=== PATIENT | male | born 1990 | race Caucasian/White ===

== ENCOUNTER 2018-12-28 15:38 | Emergency (ER) | payer OTHER ==
[2018-12-28 16:06] VITALS: BP 131/67; PULSE 74; TEMP 98; BMI 22.3
--- NOTE | 2018-12-28 16:07 | PDOC ---
Rapid Medical Evaluation Chief Complaint: Injury Medical Evaluation: Allergies Allergy/AdvReac Type Severity Reaction Status Date / Time shellfish derived Allergy Severe Hives Verified 12/28/18 16:04 12/28/18 16:05 I have performed a brief in-person evaluation of this patient. The patient presents with a chief complaint of: PAIN AND SWELLING TO RIGHT HAND Pertinent physical exam findings: swollen right hand I have ordered the following: XrAY HAND The patient will proceed to the ED for further evaluation. Discharge Disposition - Diagnosis Hand deformity - Referrals - Patient Instructions - Post Discharge Activity
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
== END 2018-12-28 17:14 | disposition home or self-care (01) ==
LOC: JERFT 15:38
PROC: 2W3EX1Z Immobilization of Right Hand using Splint (ICD-10-PCS; principal; 2018-12-28)
DX: S62.314A Displaced fracture of base of fourth metacarpal bone, right hand, initial encounter for closed fracture (principal); W22.8XXA Striking against or struck by other objects, initial encounter; Y93.89 Activity, other specified; Y92.89 Other specified places as the place of occurrence of the external cause; Y99.8 Other external cause status
CPT/HCPCS: 73130-TC-RT-FY; 99281-25

== ENCOUNTER 2021-10-15 02:01 | Emergency (ER) | payer OTHER ==
[2021-10-15 02:14] VITALS: BP 118/70; PULSE 78; TEMP 98.1; BMI 22.3
[2021-10-15] MEDS ORDERED: diazePAM 5 MG TABLET PO ONE (07:22)
[2021-10-15] MEDS ORDERED: KETOROLAC TROMETHAMINE 30 MG/1 ML VIAL IM ONE (07:22)
[2021-10-15] MEDS ORDERED: diazePAM 5 MG TABLET ONE (07:34)
[2021-10-15] MEDS ORDERED: KETOROLAC TROMETHAMINE 30 MG/1 ML VIAL ONE (07:35)
== END 2021-10-15 07:49 | disposition home or self-care (01) ==
LOC: JER 02:01
PROC: 3E023GC Introduction of Other Therapeutic Substance into Muscle, Percutaneous Approach (ICD-10-PCS; principal; 2021-10-15)
DX: M54.42 Lumbago with sciatica, left side (principal); M62.830 Muscle spasm of back
CPT/HCPCS: 99284-25